=== PATIENT | male | born 2000 | race Caucasian/White ===

== ENCOUNTER 2025-04-12 17:39 | Emergency (ER) | payer OTHER, SELFPAY ==
[2025-04-12] VITALS (11 sets, daily range): BP systolic 93–156; BP diastolic 61–87
[2025-04-12 17:45] LABS: Glucose - Point of Care 152 mg/dl (70-99)
--- NOTE | 2025-04-12 17:46 | ED.GENMED ---
History of Present Illness
General
Chief Complaint: Seizure
Source: patient and ambulance crew
Exam Limitations: clinical condition
Time Seen by Provider: 04/12/25 17:45
Nursing documentation reviewed up to this point in time: agreed with
History of Present Illness
History of Present Illness:
Patient with history of seizure disorder, presents to ED secondary to witnessed seizure episode, shortly prior to arrival. Per paramedics, patient had complained of not feeling well and had gone over the target, where he had witnessed seizure
episode. When medics arrived at scene, patient was still seizing, for which he was given Versed 5 mg IM with cessation of seizure-like activity. During transport to ED, patient had additional episode of seizure, requiring 5 mg additional dose of
Versed intravenously. Upon arrival, patient is awake, but not responsive to any verbal or physical stimuli. Unable to obtain any further information at this time. However, paramedics did speak with parents since mom who reported the patient's
medication was recently switched over from Topamax to a different medication.
Past History
Past History
ED Past Medical History: Psychiatric (anxiety)
Social History
Tobacco: Smoker (1/2ppd)
Alcohol: None
Drug: Other
Personal: Single
Living: other (drug rehab)
Employment: Not employed
Family History
Family History: Other
Review of Systems
Review of Systems
Allergies reviewed?: Yes
Unable to obtain full review of systems at this time due to: due to acuity
All Other Systems: Not applicable
Phy Exam
Physical Exam
Physical Exam:
Physical Exam
General: mild distress. afebrile. tachycardic
Head: nc/at.
Neck: supple. no jvd
Heart: tachycardic
Lungs: no acute respiratory distress. clear bilaterally
Abdomen: normal bowel sounds. no distention
Neuro: awake but not responsive
Skin: no rash
Extremities: no edema.
Course
Orders/Labs/Results
Orders:
Orders
04/12/25 17:45
Add On- LAB Urgent
Tests Added?: magnesium
Levetiracetam Injectable [Keppra] 1,000 mg IV NOW STA
04/12/25 17:48
Complete Blood Count/With Diff Urgent
04/12/25 18:05
Levetiracetam Injectable [Keppra] 3,000 mg IV NOW STA
04/12/25 18:15
Propofol 1,000,000 Mcg/100 ml [Diprivan] 1,000,000 mcg in 100 ml .ROUTE .STK-MED
04/12/25 18:19
Midazolam HCl [Versed] 5 mg .ROUTE .STK-MED ONE
04/12/25 18:24
Portable Chest Xray [CR Chest Portable - 1 View] Urgent
Comment:
Reason For Exam: post intubation
Reason Study Needs to be Portable: Patient Unstable
04/12/25 18:28
Comprehensive Metabolic Panel Urgent
Creatine Phosphokinase Urgent
Magnesium Urgent
04/12/25 18:30
Midazolam HCl [Versed] 10 mg .ROUTE .STK-MED ONE
04/12/25 18:49
Drug Screen, Urine [Urine Drug Abuse Screen] Urgent
Date Specimen was Collected: 04/12/25
Time Specimen was Collected: 18:45
04/12/25 19:00
Valproate Sodium [Depacon] 2,900 mg 0.9% Sodium Chloride 50 ml [Nss] 50 ml IV ONCE
04/12/25 19:15
ABG [Arterial Blood Gas] Urgent
%Oxygen/Room Air: 100
04/12/25 19:36
Midazolam HCl [Versed] 5 mg .ROUTE .STK-MED ONE
Midazolam HCl [Versed] 5 mg .ROUTE .STK-MED ONE
04/12/25 19:46
Propofol 1,000,000 Mcg/100 ml [Diprivan] 1,000,000 mcg in 100 ml .ROUTE .STK-MED
Abnormal Lab Results
04/12/25 04/12/25 04/12/25
17:44 17:48 18:28
WBC 16.9 H 10^3/uL
(4.8-10.8)
MCHC 32.3 L g/dL
(33.0-37.0)
MPV 11.7 H fL
(7.4-10.4)
Abs Immat Gran (auto) 0.1 H 10^3/uL
(0-0.05)
Absolute Neuts (auto) 9.7 H 10^3/uL
(1.4-6.5)
Absolute Lymphs (auto) 5.8 H 10^3/uL
(1.2-3.4)
Absolute Monos (auto) 0.8 H 10^3/uL
(0.1-0.6)
pH
pO2
Carbon Dioxide 14 L* mmol/L
(22-30)
Glucose 161 H mg/dl
(70-99)
Albumin 5.3 H g/dl
(3.5-5.0)
U Marijuana (THC) Screen
POC Glucose 152 H mg/dl
(70-99)
04/12/25 04/12/25
18:49 19:15
WBC
MCHC
MPV
Abs Immat Gran (auto)
Absolute Neuts (auto)
Absolute Lymphs (auto)
Absolute Monos (auto)
pH 7.33 L
(7.35-7.45)
pO2 81 L mmHg
(83-108)
Carbon Dioxide
Glucose
Albumin
U Marijuana (THC) Screen Positive H
(Negative)
POC Glucose
04/12/25 17:48
04/12/25 18:28
Vital Signs
Initial and Last Documented VS:
Initial Vital Signs
Pulse Resp BP
124 20 156/65
04/12/25 17:40 04/12/25 17:40 04/12/25 17:40
Last Documented Vital Signs
Temp Pulse Resp BP Pulse Ox
99.7 F 102 14 106/66 96
04/12/25 17:55 04/12/25 19:56 04/12/25 19:56 04/12/25 19:56 04/12/25 19:56
Procedures
Intubations
Procedure completed by: Tim Stubbs
Method of Intubation: glidescope
Tube size (cm): 8.0
Placement confirmed by: auscutation, CXR and capnography
Breath sounds after intubation: equal
Intubation complications: no complications
MDM/Problems Addressed
MDM/Problems Addressed:
Patient evaluated immediately upon arrival, due to continual mental status change. Patient is awake, but unresponsive to any verbal or physical stimuli. During observation ED, after patient was loaded with 4 g of Keppra IV, patient noted to have
another seizure-like activity, requiring additional dose of Versed IV. Due to patient's continual symptoms with transient hypoxia and concern for airway protection, decision made to intubate patient for airway protection.
Cerebell placed on the monitor, which showed 100% seizure burden.
With use of glidescope, patient successfully intubated, with placement confirmed via ascultation as well as chest x-ray. Postintubation, patient started on propofol infusion along with additional dose of Versed IV, as well as vecuronium.
Discussed with on-call neurology, Dr. Pritchard, who recommended patient to be transferred to tertiary [facility] for continuous EEG and further treatment.
Discussed with patient's mother via phone, Meseret, who agrees with plan to transfer patient to [facility] for further care.
Discussed with neuro critical ICU attending at [facility], who agreed to accept transfer of patient.
Critical care statement: A total of 100 minutes of critical care time was provided for this patient. This includes management of unstable vital signs, evaluation of the patient at bedside, reviewing the patient's pertinent medical records,
discussion with consultants, review of old EKGs and review of pertinent medical records. This time with separate from time utilized to perform the aforementioned documented procedures
*Pulse Oximetry
Patient hypoxic: yes (88)
*EKG
Interpreted by ED Provider?: Yes
EKG Intrepretation Date: 04/12/25
Heart Rate: 120
Rate: tachycardiac
Rhythm: sinus and PVC's
[place]: normal axis
Interval: normal interval
*Critical Care Note
Total Time (30-74mins, 75-104mins- exclusive of procedures): 100 min
ED Attending Note
-
Portions of this chart may have been created with voice recognition software.� Occasional wrong word or��sound alike� substitutions may have occurred due to the inherent limitations of voice recognition software.
Discharge Plan
Departure
Patient Disposition: Acute Care Hospital
Date of Disposition: 04/12/25
Time of Disposition: 19:11
Discharge Problem:
Status epilepticus
Prescriptions:
No Action
lacosamide 50 mg tablet
50 mg PO BID
lacosamide 200 mg tablet
200 mg PO BID
Nayzilam 5 mg/spray (0.1 mL) spray,non-aerosol
5 mg INTRANASAL DAILYPRN PRN (Reason: seizure)
Hospital Transfer
Other hospital: [facility]
I certify that the patient requires transfer: Yes
Discussed case with accepting physician:
Reason for transfer: higher level of care, medical necessity, availability of service and specialties available
Interventions
Interventions:
*Risk Screen - Suicide Last Done: 04/12/25 17:40
*General Assessment Last Done: 04/12/25 17:40
*Neglect/Abuse Screening Last Done: 04/12/25 17:54
*ED- Fall Risk Assessment Last Done: 04/12/25 17:56
*ED COVID-19 Vaccine History Last Done: 04/12/25 17:56
*Nursing Disposition Last Done: 04/12/25 20:14
ED- Cardiac Assessment Last Done: 04/12/25 18:00
ED- Neurological Assessment Last Done: 04/12/25 18:00
ED- Pulmonary Assessment Last Done: 04/12/25 18:00
Discharge Date and Time
Discharge Date/Time: 04/12/25 20:14
Print Language: ROMANSH
[2025-04-12] MEDS: KEPPRA 1000 MG IV (17:53)
[2025-04-12 17:57] LABS: Hematocrit 46.7 % (39.0-52.0); Hemoglobin 15.1 g/dL (13.0-18.0); Mean Corp Hgb Conc. 32.3 g/dL (33.0-37.0); Mean Corpuscular Volume 89.8 fL (80.0-94.0); Platelet Count 231 10^3/uL (130-400); Red Cell Dist. Width 12.8 % (11.5-14.5)
[2025-04-12] MEDS: KEPPRA 3000 MG IV (18:08)
--- NOTE | 2025-04-12 18:16 | EDRN ---
Pt is in 100% continuous seizure on ceribell monitoring. Plan is to intubate pt, Dr. Stubbs and respiratory bedside.
1820: 160mg succinylcholine and 20mg Etomidate given IV.
1822: Pt successfully intubated with 8.0 ETT 23@ lip, respiratory and Dr. Stubbs remain bedside
1823: 5mg Versed given IV
--- NOTE | 2025-04-12 18:29 | EDRN ---
182: 50mg Propofol given by IVP by Dr. Stubbs
1829: Pt remains restless and fighting the ventilator, Portable CXR bedside additional 50mg Propofol given by Dr. Stubbs
1830: additional 5mg Versed given
1831: Per verbal orders by Dr. Stubbs propofol gtt increased to 50mcg/kg/min
--- NOTE | 2025-04-12 18:35 | EDRN ---
1834: 10mg Vecronium given IV per Dr. Stubbs, seizure burden 0% on ceribell
[2025-04-12 18:54] LABS: Nucleated Red Blood Cells % 0 % (-)
[2025-04-12 18:57] LABS: AST (SGOT) 35 U/L (17-59); Albumin 5.3 g/dl (3.5-5.0); Alkaline Phosphatase 72 U/L (38-126); Blood Urea Nitrogen 10 mg/dl (9-20); Calcium 9.8 mg/dl (8.4-10.2); Carbon Dioxide 14 mmol/L (22-30); Chloride 107 mmol/L (98-107); Glucose 161 mg/dl (70-99); Magnesium 2.2 mg/dl (1.6-2.3); Potassium 4.2 mmol/L (3.5-5.1); Sodium 140 mmol/L (135-145); Total Protein 7.9 g/dl (6.3-8.2); eGFR > 60.00
[2025-04-12 19:02] LABS: ALT (SGPT) 26 U/L (0-50)
[2025-04-12 19:21] LABS: B.E. -1.6 mmol/L; HCO3 24.8 mmol/L (21-28); O2 Saturation % 97.9 % (94-98); PCO2 47 mmHg (35-48); PO2 81 mmHg (83-108)
[2025-04-12 19:23] LABS: O2 Therapy 100%
== END 2025-04-12 20:14 | disposition short-term general hospital (02) ==
LOC: EMR 17:39
PROVIDERS: EMERGENCY PHYSICIAN Emergency Medicine
DX: G40.901 Epilepsy, unspecified, not intractable, with status epilepticus (principal); R00.0 Tachycardia, unspecified; R09.02 Hypoxemia; F41.9 Anxiety disorder, unspecified; F17.200 Nicotine dependence, unspecified, uncomplicated
CPT/HCPCS: 99291; 99292; 96374; 96376; 31500; 71045; 80053; 80306; 82550; 82805; 82962; 83735; 85025; 93005; 94002